=== PATIENT | female | born 1995 | race Caucasian/White ===

== ENCOUNTER 2024-10-15 12:48 | Emergency (ER) | payer BC, SELFPAY ==
[2024-10-15 12:49] VITALS: BP 138/85; PULSE 91; RESP 18; TEMP 36.3; O2SAT 98
[2024-10-15 12:57] VITALS: BP 138/85; PULSE 91; RESP 18; TEMP 36.3; O2SAT 98
--- NOTE | 2024-10-15 13:00 | DI.RAD_ITS ---
Exam(s) XR CHEST 2V PA LATERAL EXAM: XR CHEST 2V PA LATERAL CLINICAL HISTORY: cough. TECHNIQUE: 2D digital imaging was performed. COMPARISON: No exams were available for comparison FINDINGS: 2 views: Heart size is normal. The mediastinum is not widened. Lungs are clear. No infiltrates nor pleural effusions. IMPRESSION: No acute pulmonary findings. DATA REPOSITORY: RADIATION DOSE DELIVERED:
--- NOTE | 2024-10-15 13:02 | W.ED.GENAD ---
Discharge Plan Disposition Patient Disposition: Home Condition: Stable Discharge Details Clinical Impression: Influenza A Primary Care Provider: Demetrice,Local ED Provider: Curry Mata Home Meds and New Rx's Prescriptions: New oseltamivir 75 mg capsule 75 mg PO BID 5 Days Qty: 10 0RF Continued dexmethylphenidate [Focalin] 5 MG tablet 5 mg PO BID methylphenidate HCl [Metadate ER] 20 MG tablet extended release 20 mg PO QAM quetiapine 25 mg tablet 25 mg PO DAILY fluoxetine 40 mg capsule 40 mg PO DAILY norgestimate-ethinyl estradiol [Sprintec (28)] 0.25-35 mg-mcg tablet 1 tab PO DAILY clonazepam 1 mg tablet 0.5 mg PO BID Patient Comments: take 1/2 to 1 tablet NEEDED FOR ANXIETY TWICE DAILY fluticasone propionate 50 mcg/actuation spray,suspension 1 spray INTRANASAL DAILY Discharge Instructions Instructions: Albuterol, Oseltamivir, Flu, Adult ED Additional Instructions: You were seen in the emergency department for your influenza A infection. I have sent you a prescription for Tamiflu sent to [facility] in [place]. Please take this as directed, please use therapeutic dosing of Tylenol (acetamenophen) & Advil (ibuprofen) in an alternating fashion as follows: Take 1000mg of Tylenol every 6 hours without missing doses- that is 4 times per day. [place] in between the Tylenol dosings, take 400-600mg of Advil also on a 6 hour schedule, that is also 4 times per day. The daily maximum dosing of Tylenol is 4000mg, and the daily maximum dosing of Advil is 2400mg. This is safe to do for weeks. Please note that some common cold medications & prescription pain medications may contain acetamenophen and you need to read OTC drug labels and factor that in to maximum daily dosings. Use the inhaler we provided for you for symptomatic shortness of breath. Please return to the emergency department for profound respiratory distress or other emergent concerns. Stand Alone Forms: Work Release Discharge Data Discharge Date/Time-TO BE ENTERED AT DEPARTURE: 10/15/24 14:55 HPI General Date/Time Provider Initiated Documentation: 10/15/24 13:02. HPI Narrative: 29 year-old female presents to ED today by POV/ambulating with a chief complaint of brief cold around [place], then got better, now moved to [facility] to start a new job and has gotten sick over the past 24 hours. Quality described as very fatigued, coughing, body aches, congestion, sore throat, no radiation to chest pain, respiratory distress, inability to tolerate PO intake. Severity is described as moderate. Palliating factors include nothing specific. Provoking factors include nothing specific. Events leading up to the incident/Associated Symptoms: Patient endorses history of asthma. Patient not anticoagulated. Related Data Home Medications ?Medication ?Instructions ?Recorded ?Confirmed dexmethylphenidate 5 mg tablet 5 mg PO BID 12/05/14 10/15/24 (Focalin) methylphenidate HCl 20 mg 20 mg PO QAM 12/05/14 10/15/24 tablet,extended release (Metadate ER) clonazepam 1 mg tablet 0.5 mg PO BID 10/15/24 10/15/24 fluoxetine 40 mg capsule 40 mg PO DAILY 10/15/24 10/15/24 fluticasone propionate 50 1 spray intranasal DAILY 10/15/24 10/15/24 mcg/actuation nasal spray,suspension norgestimate 0.25 mg-ethinyl 1 tab PO DAILY 10/15/24 10/15/24 estradiol 35 mcg tablet (Sprintec (28)) oseltamivir 75 mg capsule 75 mg PO BID influenza 5 days #10 10/15/24 caps quetiapine 25 mg tablet 25 mg PO DAILY 10/15/24 10/15/24 Previous Rx's ?Medication ?Instructions ?Recorded oseltamivir 75 mg capsule 75 mg PO BID influenza 5 days #10 10/15/24 caps Allergies Allergy/AdvReac Type Severity Reaction Status Date / Time No Known Allergies Allergy Unverified 10/15/24 12:53 General Stated Complaint: RespSymp MIS: 4 Review of Systems All systems reviewed & are unremarkable except as noted in HPI and below Exam Narrative Exam Narrative: GENERAL APPEARANCE: Well-nourished, non-toxic, awake and alert, atraumatic, no acute distress. SKIN: Warm, pink, dry, intact, without rashes/lesions/ulcerations. HEAD: Normocephalic, atraumatic, normal hair distribution for gender/age. EYES: Normal conjunctiva, no exudates on lids/lashes. ENT: Nares patent, no circumoral cyanosis, no facial swelling NECK: Supple, trachea midline, painless cervical ROM. LUNGS/CHEST: Lungs CTA bilaterally- no rhonchi/rales/wheezes, non-labored respirations, normal A/P diameter, symmetrical expansion, no chest wall deformity HEART (CV/PV): Regular rate and rhythm without murmur, no peripheral edema, no JVD. ABDOMEN: Soft, non-distended, no guarding, no tenderness. MSK: Normal ROM, no swelling/deformity to bilateral UEs or LEs, moving all extremities without weakness, no cyanosis, spine midline without tenderness, normal curvature. NEURO: Mental Status AAOx4 - alert to person, place, time, events No facial droop, no forehead involvement. Motor: No focal weakness - strength 5/5 in bilateral UEs and LEs, proximal and distal, symmetric. Sensory: sensation intact to light touch globally. Gait normal: patient ambulated without ataxia into ED room. PSYCH: euthymic, cooperative, pleasant, appropriate speech Course Vital Signs Vital signs: Vital Signs Temperature 36.3 C L 10/15/24 12:49 Pulse 91 H 10/15/24 12:49 Respiratory Rate 18 10/15/24 12:49 Blood Pressure 138/85 10/15/24 12:49 Pulse Oximetry 98 10/15/24 12:49 Temperature 36.3 C L 10/15/24 12:57 Temperature Source Oral 10/15/24 12:57 Pulse 91 H 10/15/24 12:57 Respiratory Rate 18 10/15/24 12:57 Blood Pressure 138/85 10/15/24 12:57 Blood Pressure Position Sitting 10/15/24 12:57 Pulse Oximetry 98 10/15/24 12:57 Oxygen Delivery Method Room Air 10/15/24 12:57 Oxygen Flow Rate 0 10/15/24 12:57 Pain Level 4 10/15/24 12:57 Medical Decision Making This dictation utilizes [id number] dictation software and may contain unedited grammatical errors. 29 year-old female presents to ED today by POV/ambulating with a chief complaint of brief cold around [place], then got better, now moved to [facility] to start a new job and has gotten sick over the past 24 hours. Quality described as very fatigued, coughing, body aches, congestion, sore throat, no radiation to chest pain, respiratory distress, inability to tolerate PO intake. Severity is described as moderate. Palliating factors include nothing specific. Provoking factors include nothing specific. Events leading up to the incident/Associated Symptoms: Patient endorses history of asthma. Patients' medical history: Asthma. Family and social history: Noncontributory. Pertinent exam findings / vital signs include lungs CTA, benign abdomen, nontoxic, no respiratory distress. Differential / pathologies of concern include viral syndrome, pneumonia, not hypoxic respiratory failure. Diagnostic studies of: -XR Chest, Covid/Flu/RSV PCR. -XR chest negative -Flu + Interventions of: -Tamiflu prescribed. ED Course/Assessment/Plan: 29-year-old female presented with illness around [place] but then states she got much much better and then has had a cough since yesterday, she has flu 1 PCR and I suspect she is come down with the flu in the very recent past and I did prescribe Tamiflu, her chest x-ray shows no concerns for pneumonia or viral pneumonia and she is in no respiratory distress, I stressed regular dose of Tylenol and ibuprofen and following up with primary care establishment in the area, strict return criteria for any respiratory distress. Findings not consistent with hypoxic respiratory failure, pneumonia. Disposition of Influenza A. Patient verbalized understanding of the plan and return to ED criteria and engaged in shared decision making. Medical Records Medical records reviewed: Yes I reviewed the patient's medical records. Imaging Data Radiologic Study: Attestation: I personally reviewed and interpreted this imaging study as follows: Imaging: X-Ray Radiologist's impression: EXAM: XR CHEST 2V PA LATERAL CLINICAL HISTORY: cough. TECHNIQUE: 2D digital imaging was performed. COMPARISON: No exams were available for comparison FINDINGS: 2 views: Heart size is normal. The mediastinum is not widened. Lungs are clear. No infiltrates nor pleural effusions. IMPRESSION: No acute pulmonary findings. Lab Data Lab results reviewed: Yes I reviewed the patient's lab results. Labs: Laboratory Tests Range/Units 10/15/24 12:52 COVID-19 Source Nasopharynx SARS-CoV-2 (PCR) (Negative) Negative Influenza Type A (PCR) (Negative) Positive A Influenza Type B (PCR) (Negative) Negative RSV (PCR) (Negative) Negative Quality:SDOH Health Related Social Needs: No Data to Display PFSH All Active Problems (Updated 10/15/24 @ 14:07 by NICHOLAS Jarrell) Influenza A (Acute) Social History Smoking/Tobacco Use Status: Never Smoking risk assessment performed?: Yes Alcohol Intake: current Alcohol Intake frequency: other Drug use: Never Substance use type: does not use Details: Pt states she uses alcohol approx. once per week 10/15/24 Do you feel safe at home: Yes Do you feel safe in your relationship?: Yes
[2024-10-15 13:40] LABS: COVID-19 PCR Negative (Negative); Influenza A PCR Positive (Negative); Influenza B PCR Negative (Negative); RSV PCR Negative (Negative)
[2024-10-15 13:42] LABS: Source Nasopharynx
[2024-10-15 14:20] VITALS: BP 113/75; PULSE 87; RESP 18; TEMP 36.4; O2SAT 97
[2024-10-15] MEDS: Inhaler, Assist Device 1 EACH MC (14:25)
[2024-10-15] MEDS: Albuterol HFA 8 GM 60 PUFF INH IH (14:25)
== END 2024-10-15 14:55 | disposition home or self-care (01) ==
PROVIDERS: Emergency Provider Physician Assistant
DX: J09.X2 Influenza due to identified novel influenza A virus with other respiratory manifestations (principal); R05.9 Cough, unspecified; R53.83 Other fatigue; J02.9 Acute pharyngitis, unspecified
CPT/HCPCS: 81025; 87637; 99283; 71046; 99284